=== PATIENT | female | born 1965 | race Caucasian/White ===

== ENCOUNTER 2022-04-08 13:16 | Observation (INO) | payer MEDICARE, SELFPAY ==
[2022-04-08] VITALS (16 sets, daily range): BP systolic 90–135; BP diastolic 44–79; PULSE 67–130; RESP 14–23; TEMP 36.4–36.8; O2SAT 96–100; BMI 29.1; BMI 39.3
--- NOTE | 2022-04-08 13:26 | HMH.EDGENADL ---
Discharge Plan Disposition Patient Disposition: Admitted As Inpatient Prescriptions Prescriptions: No Action furosemide 40 mg Tablet 40 mg PO BID metolazone 2.5 mg Tablet 2.5 mg PO DAILY carvedilol 12.5 mg Tablet 12.5 mg PO BID Rx Instructions: must administer with a meal/food famotidine 10 mg Tablet 10 mg PO DAILY ascorbic acid (vitamin C) 500 mg Tablet 500 mg PO DAILY albuterol sulfate 90 mcg/actuation Hfa Aerosol Inhaler 2 puff INHALATION QID PRN (Reason: COPD) topiramate 100 mg Tablet 50 mg PO DAILY fluticasone propionate [Flonase Allergy Relief] 50 mcg/actuation Tracy,Suspension 2 spray INTRANASAL DAILY loratadine 10 mg Tablet 10 mg PO DAILY buspirone 15 mg Tablet 15 mg PO TID duloxetine 60 mg Capsule,Delayed Release(Dr/Ec) 60 mg PO DAILY linaclotide 290 mcg Capsule 290 mcg PO DAILY [id number]-[id number]-[id number] 200-62.5-25 mcg Blister With Device 1 inh INHALATION DAILY Clinical Impressions Clinical Impression: Syncope, Acute hypokalemia, Hypomagnesemia Discharge ED Provider: Terell Watson General Adult HPI General Chief complaint: Fall Stated complaint: Dizzy and fell Time Seen by Provider: 04/08/22 13:26 History of Present Illness HPI narrative: Patient is a 56-year-old female with a history of heart failure and COPD with recent admission to [facility] for COPD exacerbation who presents today with a syncopal episode. She states that she was in the kitchen with no preceding prodrome this was not positional in nature and all of a sudden she felt lightheaded and lost consciousness. She states that she had no chest pain no dyspnea no headache no other painful condition. She states that she was on a medical lab technologist recently in the hospital and was not told of any significant arrhythmia. She denies having an AICD. She denies any other current symptoms. Including nausea vomiting diarrhea or volume losses. She denies any significant medication changes recently. Related Data Home Medications Medication Instructions Recorded Confirmed albuterol sulfate 90 mcg/actuation 2 puff inhalation QID PRN COPD 04/08/22 04/08/22 aerosol inhaler ascorbic acid (vitamin C) 500 mg 500 mg PO DAILY Supplement 04/08/22 04/08/22 tablet buspirone 15 mg tablet 15 mg PO TID Depression with 04/08/22 04/08/22 Anxiety carvedilol 12.5 mg tablet 12.5 mg PO BID Heart failure 04/08/22 04/08/22 duloxetine 60 mg capsule,delayed 60 mg PO DAILY Depression with 04/08/22 04/08/22 release Anxiety famotidine 10 mg tablet 10 mg PO DAILY GERD 04/08/22 04/08/22 fluticasone fur. 200 mcg-umeclid 1 inh inhalation DAILY COPD 04/08/22 04/08/22 62.5 mcg-vilant 25 mcg inhalat.powder fluticasone propionate 50 2 spray intranasal DAILY 04/08/22 04/08/22 mcg/actuation nasal Congestion/chest congesti spray,suspension (Flonase Allergy Relief) furosemide 40 mg tablet 40 mg PO BID Edema 04/08/22 04/08/22 linaclotide 290 mcg capsule 290 mcg PO DAILY IBS 04/08/22 04/08/22 loratadine 10 mg tablet 10 mg PO DAILY Allergies 04/08/22 04/08/22 metolazone 2.5 mg tablet 2.5 mg PO DAILY Edema 04/08/22 04/08/22 topiramate 100 mg tablet 50 mg PO DAILY Migraine 04/08/22 04/08/22 Allergies Allergy/AdvReac Type Severity Reaction Status Date / Time Sulfa (Sulfonamide Allergy Intermediate Rash Verified 04/08/22 13:43 Antibiotics) tiotropium Allergy Intermediate Rash Verified 04/08/22 13:43 [From Spiriva with HandiHaler] ciprofloxacin AdvReac Severe Swelling Verified 04/08/22 13:43 of Lip/Tongue/Throat [facility] Disclaimer: The information contained in this section may have been updated after the patient was seen, as this information can be updated by other users. Medical History (Updated 04/08/22 @ 15:14 by Terell Watson MD) Asthma CAD (coronary artery disease) CHF (congestive heart failure) [place]
--- NOTE | 2022-04-08 13:30 | PC.NURSE ---
ZITA ESCOBAR at for pt carrollal
[2022-04-08 13:53] LABS: Alanine Aminotransferase 25 U/L (12-78); Albumin Level 3.8 g/dl (3.5-5.0); Albumin/Globulin Ratio 1.1 (1.1-1.8); Alkaline Phosphatase 90 U/L (38-126); Aspartate Amino Transferase 31 U/L (14-36); Bilirubin,Total 0.5 mg/dl (0.2-1.3); Blood Urea Nitrogen 28 mg/dl (7-17); Calcium 8.6 mg/dl (8.4-10.2); Chloride 86 mmol/L (98-107); Creatinine Clearance Estimated 80 mL/min (50-200); Estimated Glomerular Filt Rate 58 ml/min (>60); GFR (African American) 70 ML/MIN (>60); Globulin 3.6 g/dL (1.3-3.2); Glucose 127 mg/dl (74-100); Magnesium 1.9 mg/dl (1.6-2.3); Phosphorous 4.5 mg/dl (2.5-4.5); Sodium 133 mmol/L (136-145); Total Protein,Serum 7.4 g/dl (6.3-8.2)
--- NOTE | 2022-04-08 14:00 | ECG_ITS ---
APPROVED REPORT Exam: Resting ECG HR:89 bpm ECG Measurements Heart Rate 89 AXES KS 156 P 80 QRSd 95 QRS 82 QT 398 T 86 QTc 445 Conclusion SINUS RHYTHM NONSPECIFIC T-WAVE ABNORMALITY BORDERLINE ECG UNCONFIRMED REPORT Electronically signed by : Brannon Elder MD 04/08/2022 20:53:51
[2022-04-08 14:01] LABS: Anion Gap 7.7 mEq/L (5-15); Carbon Dioxide 42 mmol/L (22.0-30.0)
[2022-04-08 14:02] LABS: Potassium 2.7 mmoL/L (3.5-5.1)
[2022-04-08 14:05] LABS: Troponin I < 0.01 ng/ml (0.00-0.034)
[2022-04-08 14:39] LABS: Basophils # 0.1 K/mm3 (0-0.2); Eosinophils # 0.2 K/mm3 (0.0-0.4); Eosinophils % 1.4 % (0.1-12.0); Hematocrit 42.7 % (37.0-47.0); Hemoglobin 13.7 g/dL (12.2-16.2); Lymphocytes # 2.7 K/mm3 (0.7-4.5); Mean Corpuscular HGB Conc 32.2 g/dL (31.8-35.4); Mean Corpuscular Volume 74.5 fl (81-99); Mean Platelet Volume 8.6 fl (7.4-10.4); Monocytes # 0.9 K/mm3 (0.1-1.0); Monocytes % 7.3 % (1.7-9.3); Neutrophils # 7.9 K/mm3 (1.8-7.8); Neutrophils % 67.3 % (37.0-80.0); Platelet Count 329 K/mm3 (142-424); Red Blood Count 5.73 M/mm3 (4.20-5.40); Red Cell Distribution Width 16.5 % (11.5-17.5); White Blood Count 11.7 K/mm3 (4.8-10.8)
--- NOTE | 2022-04-08 15:07 | PC.NURSE ---
ZITA ESCOBAR at for update on POC
--- NOTE | 2022-04-08 15:17 | PC.NURSE ---
Called for medical records from [facility], awaiting to receive info.
--- NOTE | 2022-04-08 15:40 | PC.NURSE ---
Rounded on patient. Patient needed a blanket; call light within reach of patient
--- NOTE | 2022-04-08 15:50 | PC.NURSE ---
Rounded on patient, patient was covid/flu swabbed and it was sent to lab. Call light within reach. She is sitting up on ED stretcher watching her phone with no other needs at this time
[2022-04-08 15:51] LABS: Coronavirus 19, PCR Not Detected (NotDetected); Influenza A, PCR Not Detected (NotDetected); Influenza B, PCR Not Detected (NotDetected)
--- NOTE | 2022-04-08 16:38 | EXP.HP ---
History of Present Illness *Admission Date: 04/08/22 *Reason for visit:: Syncope *History of present illness: Ms. Good is a 56-year-old female with a past medical history of COPD, home oxygen dependent at 2L, CHF, HTN. She presented to [facility] due to syncopal event that occurred prior to arrival. In the ER she was noted to be neurologically intact on exam, but found to have electrolyte abnormalities. Concern per review of notes is for possible arrythmia. Recommendations were to monitor on telemetry. The patient was admitted with initial impression: Syncope, Hypokalemia and Hyponatremia. The patient will be monitored on telemetry. She was given Electrolyte replacement. [facility] Disclaimer: The information contained in this section may have been updated after the patient was seen, as this information can be updated by other users. 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 Migraine Mycobacterium avium complex Myocardial infarct EDU (obstructive sleep apnea) Osteoporosis Seasonal allergies Surgical History Gastric bypass status for obesity H/O oophorectomy H/O: hysterectomy History of bronchoscopy History of cardiac cath History of endoscopy History of lobectomy of lung Status post osteotomy Social History Smoking Status: Current every day smoker tobacco type: cigarettes packs per day: 1 alcohol intake: never current occupational status: disabled and other Travel in the last 8 weeks: None household members: spouse housing: house lives independently: Yes marital status: education level: high school Review of Systems Review of Systems Review of systems:: pertinent systems reviewed and negative unless documented below Constitutional Constitutional: Reports system reviewed and no additional complaints, except as documented Eyes Eyes: Reports system reviewed and no additional complaints, except as documented ENT Ears, Nose, Mouth, and Throat: Reports system reviewed and no additional complaints, except as documented and Reports dizziness *Cardiovascular Cardiovascular: Reports system reviewed and no additional complaints, except as documented *Respiratory Respiratory: Reports system reviewed and no additional complaints, except as documented *Gastrointestinal Gastrointestinal: Reports system reviewed and no additional complaints, except as documented *Genitourinary Genitourinary: Reports system reviewed and no additional complaints, except as documented *Musculoskeletal Musculoskeletal: Reports system reviewed and no additional complaints, except as documented Integumentary/Breasts Skin/Breast: Reports system reviewed and no additional complaints, except as documented *Neurologic Neurologic: Reports dizziness and Reports lack of coordination Psychiatric Psychiatric: Reports system reviewed and no additional complaints, except as documented Endocrine Endocrine: Reports system reviewed and no additional complaints, except as documented Hematologic/Lymphatic Hematologic/Lymphatic: Reports system reviewed and no additional complaints, except as documented Allergic/Immunologic Allergic/Immunologic: Reports system reviewed and no additional complaints, except as documented Meds Home Medications and Allergies Home Medications
--- NOTE | 2022-04-08 16:46 | PC.NURSE ---
Patient aware that she will be admitted. Report given to VIANCA Mcdowell. [facility] discharge summary sent to floor with patient chart.
--- NOTE | 2022-04-08 16:58 | PC.NURSE ---
arrived to floor by wheelchair from ED
[2022-04-08 17:28] LABS: Troponin I < 0.01 ng/ml (0.00-0.034)
--- NOTE | 2022-04-08 17:41 | PC.NURSE ---
new admit this shift. 2lnc in place for o2 support. pt wears 2l at home. she has not c/o anything since arriving to floor. denies n/v.
[2022-04-08 20:24] LABS: Troponin I < 0.01 ng/ml (0.00-0.034)
[2022-04-08 20:27] LABS: Chloride 94 mmol/L (98-107); Potassium 3.1 mmoL/L (3.5-5.1); Sodium 136 mmol/L (136-145)
[2022-04-08 20:30] LABS: Alanine Aminotransferase 19 U/L (12-78); Albumin Level 3.1 g/dl (3.5-5.0); Albumin/Globulin Ratio 1.1 (1.1-1.8); Alkaline Phosphatase 79 U/L (38-126); Anion Gap 5.1 mEq/L (5-15); Aspartate Amino Transferase 24 U/L (14-36); Bilirubin,Total 0.4 mg/dl (0.2-1.3); Blood Urea Nitrogen 30 mg/dl (7-17); Carbon Dioxide 40 mmol/L (22.0-30.0); Creatinine Clearance Estimated 92 mL/min (50-200); Estimated Glomerular Filt Rate 52 ml/min (>60); GFR (African American) 62 ML/MIN (>60); Globulin 2.9 g/dL (1.3-3.2); Glucose 108 mg/dl (74-100)
[2022-04-08 20:31] LABS: Magnesium 1.9 mg/dl (1.6-2.3)
[2022-04-09] VITALS (7 sets, daily range): BP systolic 97–126; BP diastolic 48–80; PULSE 80–96; RESP 20–22; TEMP 37–37.2; O2SAT 88–99; BMI 39.6
--- NOTE | 2022-04-09 05:00 | PC.NURSE ---
Pt has been NSR and tachy at times t/o night. Pt has c/o feeling light headed 2x t/o night. 1st time pt bp was 105/48. Other vitals WNL and no signs of change on tele. Monitored pt closely and rechecked bp 1 hour later 109/60. Pt stated she felt better. Around 0500 Pt c/o of light headed feeling again. Pt had no oxygen on and o2 sat was 88%. After applying nc, pt o2 came up to 96%. Pt stated she felt better. No other c/o t/o night. Call light within reach.
[2022-04-09 05:01] LABS: Troponin I < 0.01 ng/ml (0.00-0.034)
--- NOTE | 2022-04-09 06:08 | PC.NURSE ---
AT 0600 RECEIVED REPORT FROM Pato MORELOS RN.
--- NOTE | 2022-04-09 07:00 | CT_ITS ---
PROCEDURE INFORMATION: Exam: CT Head Without Contrast Exam date and time: 04/09/2022 10:14 AM Age: 56 years old Clinical indication: Syncope and collapse TECHNIQUE: Imaging protocol: Computed tomography of the head without contrast. Radiation optimization: All CT scans at this facility use at least one of these dose optimization techniques: automated exposure control; mA and/or kV adjustment per patient size (includes targeted exams where dose is matched to clinical indication); or iterative reconstruction. Other protocol: This patient has received 0 known CTs and 0 known cardiac nuclear medicine studies in the 12 months prior to the current study. COMPARISON: No relevant prior studies available. FINDINGS: Brain: No evolving territorial infarct or intracranial hemorrhage seen. There is a focal, chronic appearing right caudate lacunar infarct. Cerebral ventricles: No ventriculomegaly. Paranasal sinuses: Visualized sinuses are unremarkable. No fluid levels. Mastoid air cells: Visualized mastoid air cells are well aerated. Bones/joints: Unremarkable. No acute fracture. Soft tissues: Unremarkable. Vasculature: Calcified atherosclerosis of the cisternal vertebral arteries and carotid siphons. IMPRESSION: No acute intracranial abnormality seen.
[2022-04-09 08:39] LABS: Basophils # 0.1 K/mm3 (0-0.2); Basophils % 0.9 % (0.1-2.0); Eosinophils # 0.2 K/mm3 (0.0-0.4); Eosinophils % 2.5 % (0.1-12.0); Hematocrit 39.2 % (37.0-47.0); Lymphocytes # 3.6 K/mm3 (0.7-4.5); Mean Corpuscular HGB Conc 31.4 g/dL (31.8-35.4); Mean Corpuscular Hemoglobin 24.1 pg (27.0-31.2); Mean Corpuscular Volume 76.9 fl (81-99); Mean Platelet Volume 8.6 fl (7.4-10.4); Monocytes # 0.6 K/mm3 (0.1-1.0); Monocytes % 6.5 % (1.7-9.3); Neutrophils # 4.5 K/mm3 (1.8-7.8); Platelet Count 291 K/mm3 (142-424); Red Cell Distribution Width 16.7 % (11.5-17.5); White Blood Count 8.9 K/mm3 (4.8-10.8)
[2022-04-09 08:40] LABS: Chloride 94 mmol/L (98-107); Hemoglobin 12.3 g/dL (12.2-16.2); Sodium 136 mmol/L (136-145)
[2022-04-09 08:42] LABS: Alanine Aminotransferase 21 U/L (12-78); Aspartate Amino Transferase 26 U/L (14-36); Blood Urea Nitrogen 26 mg/dl (7-17); Creatinine Clearance Estimated 102 mL/min (50-200); Estimated Glomerular Filt Rate 58 ml/min (>60); GFR (African American) 70 ML/MIN (>60); Potassium 3.2 mmoL/L (3.5-5.1)
[2022-04-09 08:43] LABS: Albumin Level 3.5 g/dl (3.5-5.0); Albumin/Globulin Ratio 1.1 (1.1-1.8); Alkaline Phosphatase 83 U/L (38-126); Anion Gap 6.2 mEq/L (5-15); Bilirubin,Total 0.5 mg/dl (0.2-1.3); Calcium 8.4 mg/dl (8.4-10.2); Carbon Dioxide 39 mmol/L (22.0-30.0); Globulin 3.3 g/dL (1.3-3.2); Glucose 124 mg/dl (74-100); Magnesium 2.1 mg/dl (1.6-2.3); Total Protein,Serum 6.8 g/dl (6.3-8.2)
--- NOTE | 2022-04-09 08:54 | PC.NURSE ---
tech note; orthostatic blood pressure noted for 0800 vital signs.
--- NOTE | 2022-04-09 09:09 | EXP.DC.SUM ---
General Admission date:: 04/08/22 Discharge date: 04/09/22 HPI HPI HPI: Ms. Good is a 56-year-old female with a past medical history of COPD, home oxygen dependent at , CHF, HTN. She presented to [facility] due to syncopal event that occurred prior to arrival. In the ER she was noted to be neurologically intact on exam, but found to have electrolyte abnormalities. Concern per review of notes is for possible arrythmia. Recommendations were to monitor on telemetry. The patient was admitted with initial impression: Syncope, Hypokalemia and Hypomagnesia. The patient will be monitored on telemetry. She was given Electrolyte replacement. Hospital Course Hospital Course Hospital Course: The patient was admitted to the medical floor with telemetry monitoring. She received IV fluid resuscitation with routine blood pressure evaluations. Her electrolytes were routinely monitored and replaced. The patient identified improvement and identified no further syncope. Her telemetry identified no abnormalities. She inquired about discharge home. She reports that she has an appointment with her PCP Dr. Johns in [place] on Monday. She plans to follow-up with her production control analyst in [place] to discuss her diuretic dosing and need for routine potassium supplementation. Her was at bedside on day of discharge and reports that he is identified an improvement in his . They are anxious to get home and follow-up with their regular outpatient care team. A discharge potassium identifies improved correction. She will be discharged with a short course of potassium supplementation. We have recommended compliance with her home BiPAP therapy and she plans to pursue our recommendations. She normally sees a stock lifter in [facility] (Dr. Cyndee Metz). I have recommended she contact their office to identify her BiPAP machine needs. Exam Data for Last 24 hours Vital signs and Labs for Last 24 Hours: Temp Pulse Resp BP Pulse Ox 98.6 F 84 20 106/52 L 99 04/09/22 08:00 04/09/22 08:00 04/09/22 08:00 04/09/22 08:00 04/09/22 08:00 Laboratory Results - last 24 hr 04/08/22 13:30: WBC 11.7 H, RBC 5.73 H, Hgb 13.7, Hct 42.7, MCV 74.5 L, MCH 24.0 L, MCHC 32.2, RDW 16.5, Plt Count 329, MPV 8.6, Neut % (Auto) 67.3, Lymph % (Auto) 23.0, Cook % (Auto) 7.3, Eos % (Auto) 1.4, Baso % (Auto) 1.0, Neut # (Auto) 7.9 H, Lymph # (Auto) 2.7, Cook # (Auto) 0.9, Eos # (Auto) 0.2, Baso # (Auto) 0.1 04/08/22 13:30: Sodium 133 L, Potassium 2.7 L*, Chloride 86 L, Carbon Dioxide 42 H*, Anion Gap 7.7, BUN 28 H, Creatinine 1.00, Estimated Creat Clear 80, Estimated GFR 58 L, Est GFR ( Amer) 70, Glucose 127 H, Calcium 8.6, Phosphorus 4.5, Magnesium 1.9, Total Bilirubin 0.5, AST 31, ALT 25, Alkaline Phosphatase 90, Troponin I < 0.01, Total Protein 7.4, Albumin 3.8, Globulin 3.6 H, Albumin/Globulin Ratio 1.1 04/08/22 15:48: SARS-CoV-2 (PCR) Not detected, Influenza A Untype (PCR) Not detected, Influenza Type B (PCR) Not detected 04/08/22 16:40: Troponin I < 0.01 04/08/22 19:48: Troponin I < 0.01 04/08/22 19:48: Sodium 136, Potassium 3.1 L, Chloride 94 L, Carbon Dioxide 40 H, Anion Gap 5.1, BUN 30 H, Creatinine 1.10 H, Estimated Creat Clear 92, Estimated GFR 52 L, Est GFR ( Amer) 62, Glucose 108 H, Calcium 8.0 L, Total Bilirubin 0.4, AST 24, ALT 19, Alkaline Phosphatase 79, Total Protein 6.0 L, Albumin 3.1 L D, Globulin 2.9, Albumin/Globulin Ratio 1.1 04/08/22 19:48: Magnesium 1.9 04/09/22 04:25: Troponin I < 0.01 04/09/22 08:09: WBC 8.9, RBC 5.10, Hgb 12.3 D, Hct 39.2, MCV 76.9 L, MCH 24.1 L, MCHC 31.4 L, RDW 16.7, Plt Count 291, MPV 8.6, Neut % (Auto) 50.0, Lymph % (Auto) 40.0, Cook % (Auto) 6.5, Eos % (Auto) 2.5, Baso % (Auto) 0.9, Neut # (Auto) 4.5, Lymph # (Auto) 3.6, Cook # (Auto) 0.6, Eos # (Auto) 0.2, Baso # (Auto) 0.1 04/09/22 08:09: Sodium 136, Potassium 3.2 L, Chloride 94 L, Carbon Dioxide 39 H, Anion Gap 6.2, BUN 26 H, Creatinin
[2022-04-09 09:26] LABS: Barbiturates Screen,Urine Negative ng/ml (<200)
[2022-04-09 09:27] LABS: Amphetamine/Metha Screen,Urine Negative ng/ml (<1000); Benzodiazepines Screen,Urine Negative ng/ml (<200)
[2022-04-09 09:28] LABS: Cannabinoid Screen,Urine Negative ng/ml (<50)
[2022-04-09 09:29] LABS: Cocaine Screen,Urine Negative ng/ml (<300); Methadone Screen,Urine Negative ng/ml (<300)
[2022-04-09 09:30] LABS: Opiate Screen,Urine Negative ng/ml (<300)
[2022-04-09 09:31] LABS: Phencyclidine Screen,Urine Negative ng/ml (<25)
[2022-04-09 09:54] LABS: Potassium 3.3 mmoL/L (3.5-5.1)
[2022-04-09 10:00] LABS: Troponin I < 0.01 ng/ml (0.00-0.034)
--- NOTE | 2022-04-09 10:32 | HMH.PHAINT1 ---
Pharmacy Intervention Comments: DISCHARGE MEDICATION COUNSELING PROVIDED. DISCUSSED ADDITION OF POTASSIUM SUPPLEMENT (TAKE DAILY, WITH FOOD, MAY CAUSE N/V/D, SIGNS OF HIGH POTASSIUM LEVEL. PATIENT VERBALIZED NO QUESTIONS AT THIS TIME.
--- NOTE | 2022-04-09 10:51 | PC.NURSE ---
pt is being discahrged from the facility with . She voiced undestanding of all discahrge education and follow up appts. IV removed. prescription sent to [facility]. Pt has a follow up appt on Monday with her PCP.
--- NOTE | 2022-04-11 13:48 | CARE MANAGER ---
Called and spoke with patient to discuss post discharge status. Patient stated that she is feeling ok, just tired. She has picked up and started her potassium that was prescribed at discharge. She has been to see the kick press setter this orning and plans to see her PCP this afternoon.
== END 2022-04-09 11:25 | disposition home or self-care (01) ==
LOC: ER 15:14 → 2ND 16:39
PROVIDERS: Family Medicine; Nurse Practitioner Family; Admitting Provider Internal Medicine Adolescent Medicine; Emergency Provider Student in an Organized Health Care Education/Training Program; PCP Internal Medicine Critical Care Medicine; Visit Provider Internal Medicine Adolescent Medicine
DX: E87.6 Hypokalemia (principal); J44.9 Chronic obstructive pulmonary disease, unspecified; I11.0 Hypertensive heart disease with heart failure; Z79.899 Other long term (current) drug therapy; Z99.81 Dependence on supplemental oxygen; I50.9 Heart failure, unspecified; I25.10 Atherosclerotic heart disease of native coronary artery without angina pectoris; I42.9 Cardiomyopathy, unspecified; F17.210 Nicotine dependence, cigarettes, uncomplicated; Z20.822 Contact with and (suspected) exposure to COVID-19
CPT/HCPCS: G0378; 36415; 70450; 80053; 80305; 83735; 84100; 84132; 84484; 85025; 93005; 94640; 99285; C9803; J2405; U0003; U0005

== ENCOUNTER → 2022-05-04 14:05 | Outpatient (CLI) | payer MEDICARE, SELFPAY ==
--- NOTE | 2022-05-04 14:47 | CT_ITS ---
FINAL REPORT TECHNIQUE: Axial imaging of the chest is obtained after the administration of contrast. 3-D MIP reformatted images were also obtained and reviewed per PE protocol. CLINICAL HISTORY: chest pain/dyspnea/edema. FINDINGS: The pulmonary arteries are well filled. There is no evidence of pulmonary embolus. There is no aortic dissection or intimal flap. There is no mediastinal, hilar, or axillary lymphadenopathy. There is evidence of prior granulomatous disease. There is a 5 mm pulmonary nodule in the left lower lobe. There are areas of linear scarring in the left upper lobe. There are patchy ground-glass opacities present, infectious or inflammatory process is not excluded. There is no pleural or pericardial effusion. Limited evaluation of the upper abdomen is without acute abnormality. There is no acute osseous abnormality. IMPRESSION: 1. No evidence of pulmonary embolism or aortic dissection. 2. Patchy ground-glass opacities could be infectious or inflammatory. Reviewed, Interpreted and Dictated by Thao Pineda MD Transcribed by Carmela Campa Authenticated and [facility]
[2022-05-04 15:08] LABS: Basophils # 0.1 K/mm3 (0-0.2); Basophils % 1.2 % (0.1-2.0); Eosinophils # 0.2 K/mm3 (0.0-0.4); Eosinophils % 3.3 % (0.1-12.0); Hematocrit 40.1 % (37.0-47.0); Hemoglobin 12.7 g/dL (12.2-16.2); Lymphocytes # 2.8 K/mm3 (0.7-4.5); Mean Corpuscular HGB Conc 31.6 g/dL (31.8-35.4); Mean Corpuscular Hemoglobin 24.3 pg (27.0-31.2); Mean Corpuscular Volume 76.8 fl (81-99); Mean Platelet Volume 8.8 fl (7.4-10.4); Monocytes # 0.4 K/mm3 (0.1-1.0); Monocytes % 5.4 % (1.7-9.3); Neutrophils % 46.1 % (37.0-80.0); Platelet Count 299 K/mm3 (142-424); Red Blood Count 5.22 M/mm3 (4.20-5.40); Red Cell Distribution Width 16.6 % (11.5-17.5); White Blood Count 6.4 K/mm3 (4.8-10.8)
[2022-05-04 15:28] LABS: Free T4 (Free Thyroxine) 1.16 ng/dl (0.78-2.19)
[2022-05-04 15:38] LABS: Alanine Aminotransferase 16 U/L (12-78); Albumin Level 3.5 g/dl (3.5-5.0); Alkaline Phosphatase 84 U/L (38-126); Anion Gap 2.8 mEq/L (5-15); Aspartate Amino Transferase 25 U/L (14-36); Bilirubin,Direct 0.2 mg/dl (0.0-0.4); Bilirubin,Indirect 0.3 mg/dL (0.0-0.9); Bilirubin,Total 0.5 mg/dl (0.2-1.3); Bilirubin,Unconjugated 0.2 mg/dL (0.0-1.1); Blood Urea Nitrogen 18 mg/dl (7-17); Calcium 8.6 mg/dl (8.4-10.2); Carbon Dioxide 38 mmol/L (22.0-30.0); Chloride 100 mmol/L (98-107); Chol/HDL Ratio 4.1 (1-3.5); Cholesterol 227 mg/dl (140-200); Direct LDL Cholesterol 137.22 mg/dL (100-129); Estimated Glomerular Filt Rate 87 ml/min (>60); GFR (African American) 105 ML/MIN (>60); Glucose 107 mg/dl (74-100); HDL Cholesterol 55 mg/dl (40-60); Magnesium 2.1 mg/dl (1.6-2.3); Potassium 3.8 mmoL/L (3.5-5.1); Sodium 137 mmol/L (136-145); Thyroid Stimulating Hormone 2.46 uIU/mL (0.465-4.68); Total Protein,Serum 6.5 g/dl (6.3-8.2); Triglycerides 172 mg/dl (30-150); VLDL Cholesterol 34 mg/dL (0-40)
== END ==
LOC: LAB 14:07
PROVIDERS: PCP Internal Medicine; Visit Provider Nurse Practitioner
DX: I10 Essential (primary) hypertension (principal); I50.9 Heart failure, unspecified; R06.00 Dyspnea, unspecified; R07.9 Chest pain, unspecified; R42 Dizziness and giddiness; R53.83 Other fatigue; R55 Syncope and collapse; R60.0 Localized edema
CPT/HCPCS: 36415; 71275; 80048; 80061; 80076; 83735; 84439; 84443; 85025; 93225; Q9967

== ENCOUNTER → 2022-05-19 06:12 | Outpatient (CLI) | payer MEDICARE, SELFPAY ==
--- NOTE | 2022-05-19 06:13 | CA_ITS ---
APPROVED REPORT EXAM: Comprehensive 2D, Doppler, and color-flow Echocardiogram Reactor Fueling Supervisor: Frances Hopkins RVT Ht: 5 ft 3 in Wt: 225lbs BSA: 2.03 BP: 161/91 mmHg Indications: SYNCOPE,SOA,CHF,EDEMA,SMOKER,CAD,COPD 2D Dimensions LVOT 2.01 cm (M/F) 1.5-2.5 LA Volume 27.30 mL LA Volume Index 13.45 mL/m2 (M/F) 16-34 M-Mode Dimensions RVDd 2.77 cm (0.9-2.6) LA Diam 3.58 cm (1.9-4.0) LVDd 4.30 cm (3.5-5.7) Ao Diam 2.57 cm (2.0-3.7) LVDs 2.89 cm (3.5-5.7) IVSd 1.37 cm (0.6-1.1) PWd 0.46 cm (0.6-1.1) EF (Teich) 61.60% FS 32.80% EDV (Teich) 83.10 mL TAPSE 2.38 (<1.7) ESV (Teich) 31.90 mL LV Diastology E Decel Time 223.00 (160-240 msec) E/A Ratio 1.0 MED E' 7.30 (< 7 cm/sec) E'/MED E' Ratio 13.71 (>14) LAT E' 7.50 (<10 cm/sec) E/LAT E' Ratio 13.35 (>14) Aortic Valve AO Peak GR. 6.60 mmHg Mitral Valve MV E Max Bharat. 100.00 (40-130 cm/s) MV A Velocity 104.00 (40-130 cm/s) E/A Ratio 0.97 MV Decel. Time 223.00 (160-240 ms) MV PHT 65.00 ms Pulmonary Valve PV Peak Velocity 69.00 (50-150 cm/s) Tricuspid Valve TR P. Velocity 267.00 cm/s RAP Estimate 10.00 mmHg RVSP 38.40 mmHg Left Ventricle Left atrium is mildly enlarged, left ventricle is normal size mild concentric left ventricular hypertrophy, estimated ejection fraction 55% with no regional wall motion abnormality, grade 1 diastolic dysfunction seen without tissue Doppler evidence of reduced left atrial pressure. Right Ventricle Right atrium and right ventricle are mildly enlarged with normal contractility. Aortic Valve Aortic valve is minimally thickened and fibrosed there is no aortic stenosis aortic insufficiency. Mitral Valve Mitral valve has mitral calcification, leaflets are minimally thickened, there is no mitral stenosis, there is mild mitral regurgitation. Tricuspid Valve Tricuspid grossly normal, there is mild tricuspid regurgitation, calculated right ventricular systolic pressure is 38 mmHg. Pulmonic Valve Pulmonic valve is poorly visualized. Great Vessels Aortic root is normal size. Inferior vena cava is normal size with normal inspiratory collapse. Pericardium No significant pericardial effusion noted. Conclusion 1. Mild biatrial normal, normal left ventricular size, mild concentric left ventricular hypertrophy, estimated ejection fraction 55% with no regional wall motion abnormality, grade 1 diastolic dysfunction seen without tissue Doppler evidence of late left atrial pressure. 2. Mildly enlarged right ventricle with normal contractility. 3. Mild mitral and tricuspid regurgitation, calculated right ventricular systolic pressure 38 mmHg. 4. No significant pericardial effusion noted 5. Inferior vena cava normal size with normal inspiratory collapse. Electronically signed by : Serg Davis MD 05/20/2022 14:56:59
--- NOTE | 2022-05-19 06:13 | NM_ITS ---
APPROVED REPORT Exam: Nuclear Stress Test Indication: chest pain..soa..fatigue..syncope Patient Location: Outpatient Stress Tech: Rosario Rios HI Tech:TOM Ch RT(R)(N) Ht: 5 ft 3 in Wt: 225 lbs Bra Size: 46d HR: 81 bpm BP: 142/78 mmHg BSA: 2.03 m2 TID: 1.04 BMI: 39.8 History: chest pain..soa..fatigue..syncope Procedure: Patient received 0.4 mg of intravenous Lexiscan, resting heart rate 81 bpm, resting blood pressure 142/78 mmHg, with Lexiscan maximum heart rate achieved was 106 bpm which is Less than 85 % of the maximum predicted heart rate and blood pressure was 142/78 mmHg. With Lexiscan, patient denied any complaint of chest pain. Electrocardiogram Resting electrocardiogram shows sinus rhythm, with Lexiscan there is a 1.[address] segment depression noted from the baseline EKG. The EKG portion of the Lexiscan is nondiagnostic. Cardiac Stress and Resting SPECT Images: Cardiac Stress and Resting SPECT images were obtained using technetium 99m Myoview 31.9 mCi stress and 10.23 mCi at rest. Gated SPECT analysis of segmental wall motion and calculation of the ejection fraction also done. Prone images were also obtained. Cardiac prone images show uniform myocardial activity without segmental perfusion abnormality, computer derived ejection fraction is 59% with no regional wall motion abnormality, right ventricle is normal size and contractility. Conclusion: 1. The EKG portion of the Lexiscan is nondiagnostic. 2. No scintigraphic evidence of reversible ischemia seen, computer derived ejection fraction is 59% with no regional wall motion abnormality, right ventricle is normal size and contractility. 3. Normal Lexiscan Myoview study. Electronically signed by : Serg Davis MD 05/20/2022 11:03:10
--- NOTE | 2022-05-19 06:13 | CA_ITS ---
APPROVED REPORT Exam: Pharmacologic Technologist: Rosario Colin, Ht: 5 ft 3 in Wt: 225 lbs BSA: 2.03 m2 HR: 75 bpm BP: 142/78 mmHg Medical History Medications: Vitamin C,,,,, Pantoprazole,,,,, Carvedilol,,,,, Flonase,,,,, Buspirone,,,,, TopIRAMATE,,,,, Albuterol,,,,, DulOXETINE,,,,, Metolazone,,,,, Potassium,,,,, LiNACLOTIDE,,,,, Stress Test Details Test: LEXISCAN Reason for pharmacologic stress test: physical limitation. HR Resting HR: 81 bpm Max Heart Rate (APMHR): 164.933426 bpm Max HR Achieved: 106 bpm Target HR (85% APMHR): 139.678777 bpm % of APMHR: 64.63 Recovery HR: 87 bpm BP Resting BP: 142/78 mmHg Max BP: 142/78 mmHg Recovery BP: 142.0/73.0 mmHg ECG Resting ECG: NSR, rightward axis, ST abns in the inferior leads Clinical Exercise duration: 04:00 min Highest Stage Achieved: Exercise capacity: 1.0 METs Stress ECG Conclusion Symptoms: SOA, chest tightness, mild stomach discomfort. Arrhythmias/Ectopy: None. ST-T Changes: No significant changes. Conclusion: Non-diagnostic Lexiscan stress. Myoview images reported separately. Test Summary REST . . . . . . . Resting REST 05:56 . . 81 . 142/ 78 . . Stage 1 01:00 . . 105 . . . . Stage 2 01:00 . . 101 . . . . Stage 3 01:00 . . 97 . 128/ 69 . . Stage 4 01:00 . . 90 . 131/ 71 . Stop exercise at 04:00 RECOVERY 01:00 . . 96 . 125/ 66 . . RECOVERY 02:00 . . 88 . 125/ 66 . . RECOVERY 03:00 . . 87 . 137/ 73 . . RECOVERY 03:19 . . 85 . 142/ 73 . . Electronically signed by : Serg Davis MD 05/20/2022 09:53:43
== END ==
LOC: RAD 06:12
PROVIDERS: PCP Internal Medicine; Visit Provider Physician Assistant
DX: I45.2 Bifascicular block (principal); R06.00 Dyspnea, unspecified; R42 Dizziness and giddiness
CPT/HCPCS: 78452; 93017; 93306; A9502; J2785

== ENCOUNTER → 2022-05-28 10:51 | Outpatient (CLI) | payer MEDICARE, SELFPAY ==
[2022-05-28 11:50] LABS: Anion Gap 5.5 mEq/L (5-15); Blood Urea Nitrogen 13 mg/dl (7-17); Calcium 7.9 mg/dl (8.4-10.2); Carbon Dioxide 35 mmol/L (22.0-30.0); Chloride 99 mmol/L (98-107); Estimated Glomerular Filt Rate 103 ml/min (>60); GFR (African American) 125 ML/MIN (>60); Glucose 115 mg/dl (74-100); Potassium 3.5 mmoL/L (3.5-5.1); Sodium 136 mmol/L (136-145)
== END ==
PROVIDERS: PCP Internal Medicine; Visit Provider Physician Assistant
DX: I10 Essential (primary) hypertension (principal); I50.9 Heart failure, unspecified; J44.9 Chronic obstructive pulmonary disease, unspecified; R06.00 Dyspnea, unspecified; R07.9 Chest pain, unspecified; R42 Dizziness and giddiness; R53.83 Other fatigue; R60.0 Localized edema
CPT/HCPCS: 36415; 80048

== ENCOUNTER 2024-11-13 12:01 | Outpatient (CLI) | payer MEDICARE, SELFPAY ==
--- OUTSIDE RECORDS SUMMARY | 2024-09-30 12:52 | XMS_ITS | Encounter Summary ---
Author Organization Healthcare Address [address] [place] [address] Care Team Providers Care Traffic Operations Manager Name Role Phone Zaira White MD Primary Care Provider Encounter Details Date Type Department Care Team ([facility] st Contact Info) Description 09/30/2024 12:52 PM EDT - 09/30/2024 1:44 PM EDT Emergency [facility] Emergency Department [address] [place] [address] Discharge Disposition: Left WIthout Being Seen Social History Tobacco Use Types Packs/Day Years Used Date Smoking Tobacco: Every Day Cigarettes 0.5 40 Smokeless Tobacco: Never Alcohol Use Standard Drinks/Week Comments No 0 (1 standard drink = 0.6 oz pur e alcohol) PHQ-2 Answer Date Recorded Patient Health Questionnaire-2 Score 0 05/07/2024 PHQ-2A Answer Date Recorded Depression Risk 0 03/22/2022 Comments No Sex and Gender Information Value Date Recorded Sex Assigned at Not on file Legal Sex Female 8:43 PM EDT Gender Identity Not on file Sexual Orientation Not on file documented as of this encounter Medications at Time of Discharge Medication Sig Dispense Quantity Refills Last Filled Start D ate End Date albuterol 108 (90 Base) MCG/ACT inhaler Inhale 2 puffs every 4 (four) hours as needed. 03/13/2019 azithromycin (Zithromax) 500 MG tablet 11/18/2020 bisacodyl (Dulcolax) 5 MG EC tablet Take 1 tablet (5 mg) by mouth 1 (one) time each day if needed for constipation. Do not crush, chew, or split. 90 Unspecified 08/10/2023 busPIRone (Buspar) 15 MG tablet TAKE 1 TABLET THREE TIMES DAILY 03/13/2019 carvedilol (Coreg) 12.5 MG tablet Take 1 tablet (12.5 mg) by mouth twice a day. 01/21/2022 carvedilol (Coreg) 25 MG tablet Take 0.5 tablets (12.5 mg) by mouth 2 (two) times a day with meals. 03/07 tab 05/25/2022 doxycycline (Monodox) 50 MG capsule 03/02/2022 DULoxetine (Cymbalta) [address] capsule 03/13/2019 Dupilumab (Dupixent) 300 MG/2ML solution auto-injector Inject 4 mL (600 mg) under the skin every 14 (fourteen) days. fluticasone (Flonase) 50 MCG/ACT nasal spray 03/13/2019 Fluticasone-Umec lidin-Vilant 100-62.5-25 MCG/INH aerosol powder Inhale 1 puff 1 (one) time each day. 07/27/2020 furosemide (Lasix) 40 MG tablet Take 1 tablet (40 mg) by mouth twice a day. 04/28/2020 ibuprofen 600 MG tablet TAKE 1 TABLET BY MOUTH EVERY SIX HOURS WITH FOOD NEEDED FOR PAIN 04/30/2020 Linzess 290 MCG capsule 01/18/2020 lisinopril-hydro CHLOROthiazide 20-25 MG tablet 03/13/2019 metoprolol succinate XL (Toprol-XL) 50 MG 24 hr tablet Take 50 mg by mouth 1 (one) time each day. 11/04/2020 multivitamin (Theragran) tablet Take 1 tablet by mouth 1 (one) time each day. pantoprazole (ProtoNix) 40 MG EC tablet Take 1 tablet (40 mg) by mouth 1 (one) time each day. 03/13/2019 predniSONE (Deltasone) 10 MG tablet 12/02/2020 rosuvastatin (Crestor) 10 MG tablet Take 1 tablet (10 mg) by mouth 1 (one) time each day. 08/16/2023 sodium chloride 3 % nebulizer solution Inhale 4 mL twice a day. 02/23/2024 topiramate 50 MG tablet 2 tablets (100 mg). torsemide (Demadex) 100 MG tablet Take 0.5 tablets (50 mg) by mouth daily. 05/24/2023 traMADol ER, biphasic, (Ryzolt) 100 MG 24 hr tablet Take 200 mg by mouth 1 (one) time each day. 09/18/2020 traMADol HCl 100 MG tablet Take by mouth. documented as of this encounter Plan of Treatment Upcoming Encounters Date Type Department Care Team (Late st Contact Info) Description 12/31/2024 1:00 PM EDT Office Visit [facility] Medicine Specialties [address], [address] [place] [address] Rian Witt MD [address] [place] [address] 05/06/2025 11:00 AM EST Appointment [facility] Radiology [address] [place] [address] 05/06/2025 2:20 PM EST Office Visit [facility] [address] [place] [address] Jonathan Lawler MD 800 [facility] [address] [place] [address] documented as of this encounter Visit Diagnoses Not on filedocumented in this encounter Additional Health Concerns Assessment Noted Time A fall risk assessment has been complete d for the patient 05/07/2024 11:10 AM EST A Body Mass Index follow-up plan has been documented for the patient 10/10/2023 10:43 AM EDT documented as of this encounter Care Teams Traffic Operations Manager Relationship Specialty Start Date End Date Zaira White MD [address] [facility] [address] [place] [address] PCP - General 07/17/20 documented as of this encounter
--- OUTSIDE RECORDS SUMMARY | 2024-11-13 12:09 | XMS_ITS | Encounter Summary ---
Author Organization [facility] Address [address] [place] [address] Care Team Providers Care Bark Skinner Name Role Phone Zaira White MD Primary Care Provider Encounter Details Date Type Department Care Team (Late Contact Info) Description 10/14/2024 Telephone [facility] Medicine Specialties [address] [place] [address] Ramonaenteryasmin, Physician, [address] [place], [place] [id number] Social History Tobacco Use Types Packs/Day Years [...] on file documented as of this encounter Plan of Treatment Upcoming Encounters Date Type Department Care Team (Late Contact Info) Description 12/31/2024 1:00 PM EDT Office Visit [facility] Medicine Specialties [address] [place] [address] Rian Witt MD [address] [place] [address] 05/06/2025 11:00 AM EST Appointment [facility] [address] [place] [address] 05/06/2025 2:20 PM EST Office Visit [facility] [address] [place] [address] Jonathan Lawler MD 800 [facility] [address] [place] [phone] documented as of this encounter Visit Diagnoses Not on filedocumented in this encounter Additional Health Concerns Assessment Noted Time A fall risk assessment has been complete d for the patient 05/07/2024 11:10 AM EST A Body Mass Index follow-up plan has been documented for the patient 10/10/2023 10:43 AM EDT documented as of this encounter Care Teams Bark Skinner Relationship Specialty Start Date End Date Zaira White MD [address] [facility] [address] [place] [address] PCP - General 07/17/20 documented as of this encounter
--- OUTSIDE RECORDS SUMMARY | 2024-11-13 12:09 | XMS_ITS | Clinical Summary ---
Author Organization [facility] Address [address] [place] [address] Care Team Providers Care Office Nurse Practitioner Name Role Phone Zaira White MD Primary Care Provider Allergies Active Allergy Reactions Criticality Noted Date Comments Ciprofloxacin Swelling,Unknown - Patient states they do not know rxn details High 06/04/2015 Mouth, rash Mouth, rash Sulfa Drugs Rash,Unknown - Patie nt states they do not know rxn details Low 06/04/2015 Tiotropium Rash Low 06/04/2015 Medications albuterol 108 (90 Base) MCG/ACT inhaler Inhale 2 puffs every 4 (four) hours as needed. 0 Active azithromycin (Zithromax) 500 MG tablet 1 Active busPIRone (Buspar) 15 MG tablet TAKE 1 TABLET THREE TIMES DAILY 0 Active DULoxetine (Cymbalta) [address] capsule 0 Active fluticasone (Flonase) 50 MCG/ACT nasal spray 0 Active Fluticasone-Ume clidin-Vilant 100-62.5-25 MCG/INH aerosol powder Inhale 1 puff 1 (one) time each day. 1 Active furosemide (Lasix) 40 MG tablet Take 1 tablet (40 mg) by mouth twice a day. 1 Active ibuprofen 600 MG tablet TAKE 1 TABLET BY MOUTH EVERY SIX HOURS WITH FOOD NEEDED FOR PAIN 1 Active Linzess 290 MCG capsule 0 Active pantoprazole (ProtoNix) 40 MG EC tablet Take 1 tablet (40 mg) by mouth 1 (one) time each day. 0 Active traMADol ER, biphasic, (Ryzolt) 100 MG 24 hr tablet Take 200 mg by mouth 1 (one) time each day. 1 Active lisinopril-hydr oCHLOROthiazide 20-25 MG tablet 0 Active metoprolol succinate XL (Toprol-XL) 50 MG 24 hr tablet Take 50 mg by mouth 1 (one) time each day. 1 Active topiramate 50 MG tablet 2 tablets (100 mg). Active predniSONE (Deltasone) 10 MG tablet 1 Active traMADol HCl 100 MG tablet Take by mouth. Active carvedilol (Coreg) 12.5 MG tablet Take 1 tablet (12.5 mg) by mouth twice a day. 2 Active doxycycline (Monodox) 50 MG capsule 2 Active carvedilol (Coreg) 25 MG tablet Take 0.5 tablets (12.5 mg) by mouth 2 (two) times a day with meals. / tab 3 Active torsemide (Demadex) 100 MG tablet Take 0.5 tablets (50 mg) by mouth daily. 4 Active bisacodyl (Dulcolax) 5 MG EC tablet Take 1 tablet (5 mg) by mouth 1 (one) time each day if needed for constipation . Do not crush, chew, or split. 90 Unspecified 4 Active multivitamin (Theragran) tablet Take 1 tablet by mouth 1 (one) time each day. Active sodium chloride 3 % nebulizer solution Inhale 4 mL twice a day. 4 Active rosuvastatin (Crestor) 10 MG tablet Take 1 tablet (10 mg) by mouth 1 (one) time each day. 4 Active Dupilumab (Dupixent) 300 MG/2ML solution auto-injector Inject 4 mL (600 mg) under the skin every 14 (fourteen) days. Active Active Problems Problem Noted Date Diagnosed Date Obesity (BMI 35.0-39.9 without comorbidity) 07/2024 Severe obesity (BMI 35.0-39.9) with comorbidity 05/08/2024 Shortness of breath 05/07/2023 Chest pain 05/07/2023 Dependence on continuous supplemental oxygen 05/2023 Abdominal pain 05/07/2023 Gastroesophageal reflux disease 05/07/2023 Morbid obesity with body mass index (BMI) of 40. 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 Encounters Date Type Department Care Team Description 10/14/2024 Telephone [facility] Medicine Specialties [address] [place] [address] Courtney tello, Physician, MD 10/10/2024 Telephone [facility] Medicine Specialties [address] [place] [address] Janel Saldivar RN 09/30/2024 12:52 PM EDT - 09/30/2024 1:44 PM EDT Emergency [facility] Emergency Department [address] [place] [address] Discharge Disposition: Left WIthout Being Seen 09/24/2024 [facility] [address] [place] [address] Zaira White MD LUQ abdominal pain (Primary Dx); Other dysphagia from Last 3 Months Family History Medical History Relation Name Comments Conversions - Other Father malignan t neoplasm of skin Skin cancer Father FH: skin cancer Breast cancer Maternal Grandmother FH: br east cancer Breast cancer Mother FH: breast can cer Lung cancer Other 1 Lung cancer Other 2 Lung cancer Other 3 Breast cancer Other 4 Conversions - Other Other 5 malignan t neoplasm of skin Relation Name Status Comments Father Maternal Grandmother Mother Other 1 Other 2 Other 3 Other 4 Other 5 Social History Tobacco Use Types Packs/Day Years Used Date Smoking Tobacco: Every Day Cigarettes 0.5 40 Smokeless Tobacco: Never Tobacco Cessation:Ready to Q uit: No; Counseling Given: Not Answered Alcohol Use Standard Drinks/Week Comments No 0 [...] on file Sexual Orientation Not on file Last Filed Vital Signs Vital Sign Reading Time Taken Comments Blood Pressure 112/79 05/07/2024 11:04 AM EST Pulse 115 05/07/2024 11:04 AM EST Temperature 36.6 C (97.9 F) 05/07/2024 11:04 AM EST Respiratory Rate 22 05/07/2024 11:04 AM EST Oxygen Saturation 95% 05/07/2024 11:04 AM EST Inhaled Oxygen Concentration - - Weight 91.3 kg (201 lb 4.5 oz) 05/07/2024 11:04 AM EST Height 160 cm (5' 3 ) 05/07/2024 11:04 AM EST Body Mass Index 35.66 05/07/2024 11:04 AM EST Plan of Treatment Upcoming Encounters Date Type Department Care Team (Late st Contact Info) Description 12/31/2024 1:00 PM EDT Office Visit [facility] [address] [place] [address] Rian Witt MD [address] [place] [address] 05/06/2025 11:00 AM EST Appointment [facility] Rad[facility] [address] [place] [address] 05/06/2025 2:20 PM EST Office Visit [facility] [address] [place] [address] Jonathan Lawler MD 800 [facility] [address] [place] [address] Health Maintenance Due Date Last Done Comments [facility]-HIV Screening 1966 [facility]-Infant/Child/Adol SDOH Screenings 1966 [facility]- SDOH Screenings 1984 [facility]-Adult SDOH Screenings 1984 [facility]-DTaP,Tdap,and Td Vaccines (1 - Tdap) 1985 [facility]-Hepatitis B Vaccines (1 of 3 - 19+ 3-dose series) 1985 [facility]-Zoster Vaccines (1 of 2) 1985 CT Colonography 2011 Colonoscopy 2011 FIT-DNA 2011 FIT 2011 FOBT 2011 Sigmoidoscopy 2011 [facility]-Colorectal Cancer Screening 2011 [id number] Vaccine (3 - Pfizer risk series) 03/30/2021 03/02/2021, 09/03/2020 [facility]-Pneumococcal Vaccine: 50+ Years (3 of 3 - PCV20 or PCV21) 04/25/2022 04/25/2017, 04/22/2016 [facility]-Medicare Annual Wellness (AWV) 05/31/2024 06/01/2023, 02/22/2021, 02/26/2020, Additional history exists [facility]-Influenza Vaccine (#1) 11/04/202411/29, 11/25/2021, 02/22/2021, Additional history exists [facility]-Depression Screening 05/07/2025 05/07/2024, 03/06 [facility]-Diabetes: Hemoglobin A1C 05/29/2025 05/29/2024, 11/30/2023, 06/01/2023, Additional history exists [facility]-Breast Cancer Screening 10/26/202510/05, 10/27/2023, 09/02/2022, Additional history exists [facility]-Obesity Intervention Completed 10/10/2023, 08/2023 [facility]-Lung Cancer Screening Discontinued 2024, 04/08/2024, 03/20/2023, Additional history exists [facility]-Hepatitis C Screening Completed 05/29/2024 HPV Vaccines Aged Out No longer eligi ble based on patient's age to complete this topic [facility]-HIB Vaccines Aged Out No longer e ligible based on patient's age to complete this topic [facility]-Hepatitis A Vaccines Aged Out No longer eligible based on patient's age to complete this topic [facility]-IPV Vaccines Aged Out No longer e ligible based on patient's age to complete this topic [facility]-Rotavirus Vaccines Aged Out No lo nger eligible based on patient's age to complete this topic Procedures Procedure Name Priority Date/Time Associated Diagnosis Comments CT CHEST WO IV CONTRAST Routine 05/07/2024 8:14 AM EST Diffuse idiopathic pulmonary neuroendocrine cell hyperplasia from Last 3 Months or Most Recently Relevant to Health Maintenance Results * CT Chest wo IV Contrast (05/07/2024 8:14 AM EST) Anatomical Region Laterality Modality Chest Computed Tomogra phy Impressions 05/07/2024 9:55 AM EST Stable bilateral pulmonary nodules. No new suspicious pulmonary nodules. CRITICAL RESULT: No. COMMUNICATION: Per this written report. By electronically signing this report, I, the attending physician, attest that I have personally reviewed the images/data for the above examination(s) and agree with the final edited report. 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 Total DLP (Dose-Length Product): 215.24 mGy.cm. Please note: The reported value represents the total of one or more individual components during the CT acquisition on this date and at this time, and as such, the same value may appear in more than one CT report depending on the interpreting/reporting physicians. COMPARISON: CT chest 03/22/2022 FINDINGS: Limited due to motion artifact. Mediastinum and Pleura: No mediastinal adenopathy. Calcified mediastinal and left hilar granulomas. Mild coronary artery calcifications. Mitral annular calcifications. No pleural or pericardial effusion. Lungs: Central airways are patent. Post surgical changes of prior left upper lobe wedge resection. Similar mosaic attenuation of the lungs. Unchanged bilateral pulmonary nodules. For example unchanged 4 mm left lower lobe nodule (series 4 image 212). No significant interval change in size of 6 mm left lower lobe pulmonary nodule (series 4 image 198). No new suspicious pulmonary nodules. Calcified left apical granuloma. Upper Abdomen: Splenic granulomas. Prior cholecystectomy. Postcholecystectomy extrahepatic biliary ductal ectasia. Changes of prior gastric bypass surgery, with unchanged small hiatal hernia containing the gastric pouch. Musculoskeletal: No suspicious lytic or sclerotic lesion. No axillary adenopathy. 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 Total DLP (Dose-Length Product): 215.24 mGy.cm. Please note: The reportedvalue represents the total of one or more individual components during theCT acquisition on this date and at this time, and as such, the same valuemay appear in more than one CT report depending on theinterpreting/reporting physicians. COMPARISON: CT chest 03/22/2022 FINDINGS: Limited due to motion artifact. Mediastinum and Pleura: No mediastinal adenopathy. Calcified mediastinaland left hilar granulomas. Mild coronary artery calcifications. Mitralannular calcifications. No pleural or pericardial effusion. Lungs: Central airways are patent. Post surgical changes of prior leftupper lobe wedge resection. Similar mosaic attenuation of the lungs.Unchanged bilateral pulmonary nodules. For example unchanged 4 mm leftlower lobe nodule (series 4 image 212). No significant interval change insize of 6 mm left lower lobe pulmonary nodule (series 4 image 198). No newsuspicious pulmonary nodules. Calcified left apical granuloma. Upper Abdomen: Splenic granulomas. Prior cholecystectomy.Postcholecystectomy extrahepatic biliary ductal ectasia. Changes of priorgastric bypass surgery, with unchanged small hiatal hernia containing thegastric pouch. Musculoskeletal: No suspicious lytic or sclerotic lesion. No axillaryadenopathy. IMPRESSION: Stable bilateral pulmonary nodules. No new suspicious pulmonary nodules. CRITICAL RESULT: No. COMMUNICATION: Per this written report. By electronically signing this report, I, the attending physician, attestthat I have personally reviewed the images/data for the aboveexamination(s) and agree with the final edited report. Drafted by James Nicole MD on 05/07/2024 9:14 AM Final report signed by Silas Pedersen MD on 05/07/2024 9:55 AM us Jenniffer Leung APRN IMG CT PROCEDURES Final Res ult from Last 3 Months or Most Recently Relevant to Health Maintenance Insurance [employer] MEDICARE [facility] Care Teams Office Nurse Practitioner Relationship Specialty Start Date End Date Zaira White MD [address] [place] [address] PCP - General 07/17/20
--- OUTSIDE RECORDS SUMMARY | 2024-11-13 12:09 | XMS_ITS | Encounter Summary ---
Author Organization Healthcare Address [address] [place] [address] Care Team Providers Care Pipefitter Helper Name Role Phone Zaira White MD Primary Care Provider Encounter Details Date Type Department Care Team (Late st Contact Info) Description 10/10/2024 Telephone [facility] [address] [place] [address] Janel Saldivar, RN [facility] Social History Tobacco Use Types Packs/Day Years [...] on file documented as of this encounter Miscellaneous Notes * Telephone Encounter - Karen Baird - 10/16/2024 1:27 PM EDT Status Update Call #1 1st call regarding the status of the initial request. Patient calling back she missed call from Faith and would like call back please Best contact number: Other: [phone] patient would like direct number left if no answer she states she has a block on her phone due to telemarketers Optimal time of day to reach caller: ANYTIME Additional comments/information from caller: None Note: Please do not reply to this message. Follow-up communication and further actions as a result of this message need to be communicated with the patient directly, if the patient is not active onMyChart. If the patient is active on MyChart, they will receive notification of the communication/outcome via MyChart. * Telephone Encounter - Rachana Wren - 10/11/2024 9:05 AM EDT Lvm for cb to schedule OV in [facility] documented in this encounter Plan of Treatment Upcoming Encounters Date Type Department Care Team (Late st Contact Info) Description 12/31/2024 1:00 PM EDT Office Visit [facility] Medicine Specialties [address] [place] [address] Rian Witt MD [address] [place] [address] 05/06/2025 11:00 AM EST Appointment [facility] [address] [place] [phone] 05/06/2025 2:20 PM EST Office Visit [facility] [address] [place] [address] Jonathan Lawler MD 800 [facility] [address] [place] [phone] documented as of this encounter Visit Diagnoses Not on filedocumented in this encounter Additional Health Concerns Assessment Noted Time A fall risk assessment has been complete d for the patient 05/07/2024 11:10 AM EST A Body Mass Index follow-up plan has been documented for the patient 10/10/2023 10:43 AM EDT documented as of this encounter Care Teams Pipefitter Helper Relationship Specialty Start Date End Date Zaria White MD [address] [place] [address] PCP - General 07/17/20 documented as of this encounter
--- OUTSIDE RECORDS SUMMARY | 2024-11-13 12:09 | XMS_ITS | Clinical Summary ---
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 Z79.2 (ICD-10-CM ) 11/17 Active 11/17 Adenike Jole correction (current) use of antibiotics Personal history of allergy to other antibiotic agent 375384305 (SNOMED CT) 08/25 Inactive 08/25 Adenike Joel Allergy to antibacterial drug CHF 75407049 (SNOMED CT) 08/25 Inactive 08/25 Adenike Joel Congestive heart failure Obstructive sleep apnea 83285596 (SNOMED CT) 08/25 Inactive 08/25 Adenike Joel Obstructive sleep apnea syndrome COPD 76359535 (SNOMED CT) 08/25 Active 08/25 Adenike Joel Chronic obstructive pulmonary disease Nausea 381920887 (SNOMED CT) 10/12 Inactive 10/12 Adenike Joel Nausea Costochondrit is, acute 27137096 (SNOMED CT) 10/18 Active 10/18 Mario Tse MD Costal chondritis Nausea 700408000 (SNOMED CT) 10/12 Removed 10/12 Laura Tse Nausea Morbid obesity due to excess calories E66.01 (ICD-10-CM ) 08/25 Active 08/25 Adenike Joel Morbid (severe) obesity due to excess calories Respiratory bronchiolitis associated interstitial lung disease 815459854 (SNOMED CT) 08/25 Inactive 08/25 Adenike Joel Respiratory bronchiolitis associated interstitial lung disease Chronic respiratory failure with hypercapnia J96.12 (ICD-10-CM ) 09/14 Active 09/14 Adenike Jeol Chronic respiratory failure with hypercapnia Chronic respiratory failure with hypoxia J96.11 (ICD-10-CM ) 09/09 Active 09/09 Adenike Joel Chronic respiratory failure with hypoxia Respiratory failure, chronic 55295258 (SNOMED CT) 09/09 Inactive 09/09 Mario Tse MD Chronic respiratory failure Tobacco abuse, cigarettes 29105710 (SNOMED CT) 08/25 Active 08/25 Berna W Cigarette smoker 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 (ICD-10-CM ) 08/25 Active 08/25 Berna W Pulmonary mycobacterial infection Respiratory bronchiolitis associated interstitial lung disease 119613626 (SNOMED CT) 08/25 Removed 08/25 Berna W Respiratory bronchiolitis associated interstitial lung disease Morbid obesity 363278860 (SNOMED CT) 08/25 Inactive 08/25 Berna W Morbid obesity Obstructive sleep apnea 82183932 (SNOMED CT) 08/25 Removed 08/25 Berna W Obstructive sleep apnea syndrome CHF 51401439 (SNOMED CT) 08/25 Removed 08/25 Berna W Congestive heart failure SEVERE COPD J44.9 (ICD-10-CM ) 08/25 Inactive 08/25 Berna W Chronic obstructive pulmonary disease, unspecified Hemoptysis 81388089 (SNOMED CT) 08/25 Active 08/25 Berna W Hemoptysis Personal history of allergy to other antibiotic agent 567635376 (SNOMED CT) 08/25 Removed 08/25 Berna W Allergy to antibacterial drug HX SULFA ALLERGY Z88.2 (ICD-10-CM ) 08/25 Active 08/25 Berna W Allergy status to sulfonamides Medications Medication Instructions Start Date Stop Date Generic Name NDC Provider RIFAMPIN 300 MG CAPS Take 2 tablets by every Monday, Monday, and Monday RIFAMPIN [id number] Mario Tse MD ETHAMBUTOL HCL 400 MG TABS Take 3 tablets by mouth every Monday, Monday, and Monday ETHAMBUTOL HCL 81578570822 Mario Tse MD BIAXIN XL 500 MG ORAL TABLET EXTENDED RELEASE 24 HOUR Take 2 tablets by mouth every Monday, Monday, and Monday CLARITHROMYCIN 80428514413 Mario Tse MD RIFAMPIN 300 MG CAPS Take 2 tablets by mouth every -- RIFAMPIN 88394961586 Mario Tse MD ETHAMBUTOL HCL 400 MG TABS Take 3 tablets by mouth every - ETHAMBUTOL HCL 50395646619 Mario Tse MD BIAXIN 500 MG ORAL TABLET 2 by mouth every CLARITHROMYCIN 39239887053 Mario Tse MD ZOFRAN 4 MG ORAL TABLET Take one tablet by mouth every 6 hours as needed for nausea ONDANSETRON HCL 88790036142 Mario Tse MD RIFAMPIN 300 MG CAPS Take 2 capsules by mouth on Monday, Monday, and Monday each week RIFAMPIN 81618809830 Veronica Mcbride CLARITHROMYCIN 500 MG TABS Take 2 tabs by mouth on Monday, Monday, and Monday each week. CLARITHROMYCIN 95438046064 Veronica Mcbride BREO ELLIPTA 200-25 MCG/ACT AEPB FLUTICASONE FUROATE-VILANTER OL 78794187340 Veronica Mcbride PROAIR HFA AEROSOL SOLUTION ALBUTEROL SULFATE AERS 49840861684 Veronica Mcbride PREVACID 15 MG ORAL CAPSULE DELAYED RELEASE by mouth daily LANSOPRAZOLE 81919833115 Veronica Mcbride CLARITIN 10 MG TABS by mouth daily LORATADINE 20212999751 Veronica Mcbride DEMADEX 20 MG ORAL TABLET by mouth daily TORSEMIDE 63232925915 Veronica Mcbride CARTIA XT 240 MG [id number] by mouth daily DILTIAZEM HCL COATED BEADS 09449589225 Veronica Mcbride VERAPAMIL HCL ER 360 MG [id number] take 1 capsule daily 08/26 VERAPAMIL HCL 34084997326 Veronica Mcbride VALACYCLOVIR HCL 500 MG TABS take 1 tablet daily 08/26 VALACYCLOVIR HCL 72960867307 Veronica Mcbride TOPAMAX 50 MG TABS take 1 tablet daily 08/26 TOPIRAMATE 55484870436 Veronica Mcbride PROTONIX 40 MG TBEC take 1 tablet daily 08/26 PANTOPRAZOLE SODIUM 26908746150 Veronica Mcbride MONTELUKAST SODIUM 10 MG TABS take 1 tablet daily 08/26 MONTELUKAST SODIUM 09307806865 Veronica Mcbride IPRATROPIUM-ALBUT ANG 0.5-2.5 (3) MG/3ML SOLN 08/26 IPRATROPIUM-ALBU TEROL 13699409139 Veronica Mcbride CARDIZEM CD 240 MG [id number] 08/26 DILTIAZEM HCL COATED BEADS 56680904485 Veronica Mcbride CLARITHROMYCIN 500 MG TABS 08/26 CLARITHROMYCIN 92748242181 Veronica Mcbride EDARBYCLOR 40-25 MG TABS 08/26 AZILSARTAN-CHLOR THALIDONE 66630655923 Veronica Mcbride PROVENTIL HFA 108 (90 Base) MCG/ACT INHALATION AEROSOL SOLUTION 08/26 ALBUTEROL SULFATE 36910171397 Veronica Mcbride ALBUTEROL SULFATE (2.5 MG/3ML) 0.083% NEBU 08/26 ALBUTEROL SULFATE 49361436348 Veronica Mcbride FORTAZ (IV) 08/26 FORTAZ (IV) Veronica Mcbride RIFAMPIN 300 MG CAPS Take 2 capsules by mouth on Monday, Monday, and Monday each week 0 09/03 RIFAMPIN 73483881460 Mario Tse MD ETHAMBUTOL HCL 400 MG TABS Take 3 tabs by mouth on Monday,. Monday, and Monday each week ETHAMBUTOL HCL 33712267449 Mario Tse MD CLARITHROMYCIN 500 MG TABS Take 2 tabs by mouth on Monday, Monday, and Monday each week. 10/18 CLARITHROMYCIN 00528514702 Mario Tse MD VERAPAMIL HCL ER 360 MG [id number]-FRU take 1 capsule daily 9/05 VERAPAMIL HCL 31225930575 Veronica Mcbride CARDIZEM CD 240 MG HN12F-VQU 4/ DILTIAZEM HCL COATED BEADS 26996019557 Veronica Mcbride IPRATROPIUM-ALBUT ANG 0.5-2.5 (3) MG/3ML SOLN 9/05 IPRATROPIUM-ALBU TEROL 69132752526 Veronica Mcbride BREO ELLIPTA 200-25 MCG/ACT AEPB 03/13 FLUTICASONE FUROATE-VILANTER OL 18727876513 Veronica Mcbride FORTAZ (IV) 08/26 FORTAZ (IV) Veronica Mcbride ALBUTEROL SULFATE (2.5 MG/3ML) 0.083% NEBU 4 ALBUTEROL SULFATE 18240811482 Sloan Downing PROVENTIL HFA 108 (90 Base) MCG/ACT INHALATION AEROSOL SOLUTION 08/26 ALBUTEROL SULFATE 83433454638 Sloan Downing EDARBYCLOR 40-25 MG TABS 08/26 AZILSARTAN-CHLOR THALIDONE 27795761047 Sloan Downing BUSPIRONE HCL 15 MG TABS BUSPIRONE HCL 32871142269 Sloan Downing CLARITHROMYCIN 500 MG TABS 08/26 CLARITHROMYCIN 01384973721 Sloan Downing CARDIZEM CD 240 MG [id number]-SOF 4/01 DILTIAZEM HCL COATED BEADS 21037497358 Sloan Downing DULOXETINE HCL 60 MG CPEP DULOXETINE HCL 73754188877 Sloan Downing EPIPEN 2-BETTIE 0.3 MG/0.3ML SOAJ EPINEPHRINE 60786708343 Sloan Downing FLONASE 50 MCG/ACT NASAL SUSPENSION FLUTICASONE PROPIONATE 08079830611 Sloan Downing BREO ELLIPTA 200-25 MCG/ACT AEPB 03/13 FLUTICASONE FUROATE-VILANTER OL 68467580905 Sloan Downing ADVIL 200 MG TABS IBUPROFEN 73551373833 Sloan Downing IPRATROPIUM-ALBUT ANG 0.5-2.5 (3) MG/3ML SOLN 9 IPRATROPIUM-ALBU TEROL 58848912462 Sloan Downing MONTELUKAST SODIUM 10 MG TABS take 1 tablet daily 08/26 MONTELUKAST SODIUM 69515182731 Sloan Downing PROTONIX 40 MG TBEC take 1 tablet daily 08/26 PANTOPRAZOLE SODIUM 49927173402 Sloan Downing TOPAMAX 50 MG TABS take 1 tablet daily 06/04 TOPIRAMATE 49311831180 Sloan Downing VALACYCLOVIR HCL 500 MG TABS take 1 tablet daily 0 4 VALACYCLOVIR HCL 67253975648 Sloan Downing VERAPAMIL HCL ER 360 MG [id number]-XPI take 1 capsule daily 9 VERAPAMIL HCL 07706845343 Sloan Downing Medications Administered No information available. Allergies, Adverse Reactions, Alerts Allergy Name Reaction Description Start Date Severity Statu s Provider SULFA Moderate Active Veronica D BACTRIM Critical Active Sloan Chang SPIRIVA HANDIHALER Severe Active Sloan Downing CIPRO Swelling Moderate Active Sloan Downing Results Date Name Value Unit Range Flag Description Office Visit: rm #11 MEDS REVIEW Done Documenta tion of current medications (procedure) SMOK ADVICE yes Smoking c essation education (procedure) DIET RN RESOURCE NURSE yes Dietary management education, guidance, and counseling (procedure) ORALTOBACUSE Never Tobacco smoking status CIGARET SMKG yes Tobacco smoking status SMOK STATUS Current every day smoker Tobacco smoking status Lab Report: COMPREHENSIVE SC TABOLIC PANEL ANIONGAP -1.0 mmol/L 3.0-11.0 L anion gap, serum BUN/CREAT 20.0 7.0-25.0 Urea nitrogen/Creatinine [Mass Ratio] in Serum or Plasma ZZ-GE-unk 1.3 g/dL GE use only - for [employer] import when terms are not otherwise specified GFRC 131 mL/min/1 .73m2 >60 Glomerular Filtration Rate Calculation BILI TOTAL 0.4 mg/dL 0.3-1.2 Bilirubin. total [Mass/volume] in Serum or Plasma ALK PHOS 108 U/L 25-100 H Alkaline constantino sphatase [Enzymatic activity/volume] in Blood SGOT (AST) 19 U/L 0-33 Aspartate aminotransferase [Enzymatic activity/volume] in Serum or Plasma SGPT (ALT) 17 U/L 7-40 Alanine aminotransferase [Enzymatic activity/volume] in Serum or Plasma ALBUMIN 3.70 g/dL 3.20-4.80 Albumin [Mass/volume] in Serum or Plasma PROTEIN, TOT 6.5 g/dL 5.7-8.2 Protein [Mass/volume] in Serum or Plasma CALCIUM 9.1 mg/dL 8.7-10.4 Calcium [Moles/volume] in Serum or Plasma CO2 39.0 mmol/L 20.0-31.0 H Carbon diox cm, total [Moles/volume] in Venous blood CHLORIDE 104 mmol/L 99-109 Chloride [Moles/volume] in Serum or Plasma POTASSIUM 4.5 mmol/L 3.5-5.5 Potassium [Moles/volume] in Serum or Plasma SODIUM 142 mmol/L 132-146 Sodium [Moles/volume] in Serum or Plasma CREATININE 0.50 mg/dL 0.60-1.30 L Creatini ne [Mass/volume] in Serum or Plasma BUN 10 mg/dL 9-23 Urea nitrogen [Mass/volume] in Serum or Plasma GLUCOSE SER 106 mg/dL 70-100 H Glucose [Mass/volume] in Serum or Plasma Lab Report: C-REACTIVE PROTE IN CRPCARDRISK 2.70 MG/DL 0.00-10.0 0 C reactive protein [Mass/volume] in Serum or Plasma Lab Report: SEDIMENTATION RA TE ESR 30 mm/h 0-20 H Erythrocyte sedimentation rate by Westergren method Lab Report: CBC WITH AUTO DI FFERENTIAL IMMATUREGRAN 0.01 10*3/MM3 0.00-0.03 Immature granulocytes [#/volume] in Blood BASO# 0.02 10*3/mm3 0.00-0.20 Basophils [#/vol ume] in Blood EOS ABSLT 0.14 10*3/uL 0.10-0.30 Eosinophi ls [#/volume] in Blood MONOSCT AUTO 0.42 10*3/uL 0.00-1.00 Monocy pito [#/volume] in Blood by Automated count LYMPHCT AUTO 2.74 10*3/mm3 0.60-4.80 Lymph ocytes [#/volume] in Blood by Automated count ABS NEUTROPH 2.84 10*3/uL 1.50-8.30 Neutro phils [#/volume] in Blood IMM GRANU % 0.2 % 0.0-0.6 Immature granulocytes/100 leukocytes in Blood % EOS AUTO 2.3 % 0.0-3.0 Eosinophil s/100 leukocytes in Blood by Automated count MONOCYTE % 6.8 % 0.0-12.0 Monocytes /100 leukocytes in Blood by Automated count LYMPHOCY BF 44.4 % 24.0-44.0 H lymphoc ytes as percent of body fluid leukocytes PMN % 46.0 % 41.0-71.0 Neutrophils /100 leukocytes in Blood by Automated count PLATELETS 268 10*3/mm3 150-450 Platelets [#/volume] in Blood by Automated count RDW 17.7 % 11.3-14.5 H Erythrocyte distribution width [Ratio] by Automated count MCHC 29.3 G/DL 32.0-36.0 L MCHC [Mass/ volume] by Automated count MCH 20.7 pg 27.0-31.0 L MCH [Entiti c mass] by Automated count MCV 70.7 fL 80.0-99.0 L MCV [Entiti c volume] by Automated count HCT 37.9 % 34.5-44.0 Hematocrit [Volume Fraction] of Blood by Automated count HGB 11.1 g/dL 11.5-15.5 L Hemoglobin [Mass/volume] in Blood RBC 5.36 10*6/mm3 3.89-5.14 H Erythrocyt es [#/volume] in Blood by Automated count WBC 6.17 10*3/mm3 3.50-10.8 0 Leukocytes [#/volume] in Blood by Automated count Plan of Care Type Date Detail Pending order STAT Labs Pending order CMP Pending order CBC with Differe ntial Pending order C- reactive prot ein Pending order Sedimentation Ra te (ESR) Pending order STAT Labs Pending order STAT Labs Pending order Continue oral an tibiotics Pending order CMP Pending order CBC with Differe ntial Pending order Sedimentation Ra te (ESR) Pending order C- reactive prot ein Pending order CBC with Differe ntial Pending order CMP Pending order Sedimentation Ra te (ESR) Pending order C- reactive prot ein Pending order Continue oral an tibiotics Pending order X-Ray, Chest, PA & Lateral Pending order STAT Labs Pending order CBC with Differe ntial Pending order Sputum Culture & Sensitivity Pending order Gram Stain Pending order STAT Labs Pending order CMP Pending order CBC with Differe ntial Pending order Continue oral an tibiotics Pending order STAT Labs Pending order Continue oral an tibiotics Pending order CMP Pending order CBC with Differe ntial Pending order STAT Labs Pending order CMP Pending order CBC with Differe ntial Pending order Sedimentation Ra te (ESR) Pending order C- reactive prot ein Pending order CBC with Differe ntial Pending order Sedimentation Ra te (ESR) Pending order C- reactive prot ein Pending order CMP Pending order STAT Labs Pending order Other Patient education WEIGHT%20MANAG EMENT Patient education Medications Patient education HOW%20TO%20STO P%20SMOKING Procedures Code Procedure Name Date Entry Date CPT-10322 CMP [id number] CBC with Differential 2015 CPT-17808 C- reactive protein CPT-12256 Sedimentation Rate (ESR) 201 08/13/12 CPT-Cooral Continue oral antibiotics 20 20/11/07 CPT-82958 CMP [id number] CBC with Differential 2015 CPT-65683 Sedimentation Rate (ESR) 201 08/13/07 CPT-84058 C- reactive protein CPT-77004 Flu Vaccine CPT-82218 Tclacdu92 [id number] CBC with Differential 2015 CPT-48308 CMP CPT-78039 Sedimentation Rate (ESR) 201 08/12/06 CPT-02732 C- reactive protein CPT-Cooral Continue oral antibiotics 20 19/10/17 CPT-06403 X-Ray, Chest, PA & Lateral 2 CPT-sl STAT Labs [id number] CBC with Differential 2015 CPT-72277 Sputum Culture & Sensitivity CPT-26299 Gram Stain CPT-sl STAT Labs CPT-51839 CMP [id number] CBC with Differential 2015 CPT-Cooral Continue oral antibiotics 20 19/10/08 CPT-sl STAT Labs CPT-Cooral Continue oral antibiotics 20 18/09/06 CPT-53487 [facility] [id number] CBC with Differential 2015 CPT-sl STAT Labs CPT-48501 CMP [id number] CBC with Differential 2015 CPT-43062 Sedimentation Rate (ESR) 201 08/10/05 CPT-30284 C- reactive protein [id number] CBC with Differential 2015 CPT-27916 Sedimentation Rate (ESR) 201 08/09/22 CPT-85727 C- reactive protein CPT-19756 CMP CPT-sl STAT Labs CPT-LAB Other Vital Signs Date Name Value Unit Description BMI (Body Mass Index) 38.57 kg/m2 Bod y Mass Index (Ratio) Body Temperature 98.2 [degF] temperat ure E&M BP Diastolic 100 mm[Hg] blood pressu re, diastolic BP Systolic 180 mm[Hg] blood pressur e, systolic Heart Rate 90 /min pulse rate Respiratory Rate 18 /min respirat ory rate E&M Weight Measured 231.8 [lb_av] weight E& M Weight Measured 231.8 [lb_av] weight E& M Height 65 [in_us] height E&M Immunizations No information available. Advance Directives Directive Description Start Date LIVING WILL ON FILE
--- OUTSIDE RECORDS SUMMARY | 2024-11-13 12:09 | XMS_ITS | Encounter Summary ---
Author Organization [facility] Address [address] [place] [address] Care Team Providers Care Primer Waterproofing Machine Adjuster Name Role Phone Zaira White MD Primary Care Provider Reason for Referral * Consultation (Routine) - Authorized Specialty Diagnoses / Procedures Referred By Neelam lerma Referred To Contact Gastroenterology Diagnoses LUQ abdominal pain Other dysphagia Zaira White MD [address] [place] [address] Phone: tel: fax: Referral ID Status Reason Start Date Expiration Date Visits Requested Visits Authorized [id number] Authorized Specialty Services Required 09/24/2024 03/26/2026 1 1 Encounter Details Date Type Department Care Team (Late st Contact Info) Description 09/24/2024 Community [facility] [address] [place] [address] Zaira White MD [address] [place] [address] LUQ abdominal pain (Primary Dx); Other dysphagia Social History Tobacco Use Types Packs/Day Years [...] Description 12/31/2024 1:00 PM EDT [facility] [address] [place] [address] Rian Witt MD [address] [place] [address] 05/06/2025 11:00 AM EST Appointment [facility] [address] [place] [address] 05/06/2025 2:20 PM EST Office Visit [facility] [address] [place] [address] Jonathan Lawler MD [address] [facility] [address] [place] [address] Scheduled Referrals Name Type Priority Associated Diagnoses Order Schedule Ambulatory referral to Gastroenterology Outpatient Referral Routine LUQ abdominal pain Other dysphagia Expected: 09/24/2024 (Approximate), Expires: 03/28/2026 documented as of this encounter Visit Diagnoses Diagnosis LUQ abdominal pain- Primary Abdominal pain, left upper quadrant Other dysphagia documented in this encounter Additional Health Concerns Assessment Noted Time A fall risk assessment has been complete d for the patient 05/07/2024 11:10 AM EST A Body Mass Index follow-up plan has been documented for the patient 10/10/2023 10:43 AM EDT documented as of this encounter Care Teams Primer Waterproofing Machine Adjuster Relationship Specialty Start Date End Date Zaira White MD [address] [place] [address] PCP - General 07/17/20 documented as of this encounter
[2024-11-13 12:16] LABS: Microscopic, Urine URINE MICROSCOPIC (MICROSCOPIC)
[2024-11-13 12:34] LABS: Hematocrit 42.4 % (37.0-47.0); Hemoglobin 13.2 g/dL (12.2-16.2); Immature Granulocytes % 0.3 %; Mean Corpuscular HGB Conc 31.1 g/dL (31.8-35.4); Mean Corpuscular Hemoglobin 24.8 pg (27.0-31.2); Mean Corpuscular Volume 79.5 fl (81-99); Nucleated Red Blood Cells % 0 %; Platelet Count 275 K/mm3 (142-424); Red Blood Count 5.33 M/mm3 (4.20-5.40); Red Cell Distribution Width-SD 50.6 fL; White Blood Count 7.9 K/mm3 (4.8-10.8)
[2024-11-13 13:01] LABS: Bilirubin,Urine Negative (Negative); Color,Urine YELLOW (Yellow); Glucose,Urine (UA) Negative (Negative); Ketones,Urine Negative (Negative); Leukocyte Esterase,Urine Negative (Negative); PH,Urine 6.0 (5.0-8.5); Protein,Urine Negative (Negative); Specific Gravity, Urine 1.010 (1.005-1.030); Urobilinogen,Urine 0.2 EU/dl (0.2)
[2024-11-13 13:11] LABS: Bacteria,Urine Trace /lpf
== END 2024-11-13 23:59 | disposition home or self-care (01) ==
LOC: LAB 12:07
PROVIDERS: PCP Internal Medicine
DX: N28.9 Disorder of kidney and ureter, unspecified (principal)
CPT/HCPCS: 36415; 81001; 82570; 84156; 85025

== ENCOUNTER 2025-01-22 09:03 | Day surgery (SDC) | payer MEDICARE, SELFPAY ==
--- NOTE | 2025-01-17 10:57 | EXP.HP ---
History of Present Illness *Admission Date: 01/22/25 *History of present illness: Mrs. Good is a 59-year-old female who is here for diagnostic EGD. She does have left upper quadrant abdominal pain that occurs postprandially. She feels as if food gets stuck in her stomach. This has occurred intermittently for many years but is worsening. The patient previously had a Eladio-en-Y gastric bypass in 2005. She did have a colonoscopy with me in June 2021. At that time, I found a single polyp (tubular adenoma) and left-sided diverticulosis. The patient did have an EGD with Dr. Donte Lopez in early 2021 and there was reported gastritis. She does have a long history of IBS. Her father had colon cancer in his 50s. The examination is deemed medically necessary for diagnostic EGD. The patient has been seen, interviewed and examined prior to the procedure by both myself and the anesthesia provider. [facility] Disclaimer: The information contained in this section may have been updated after the patient was seen, as this information can be updated by other users. 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 History of lung cancer Hypertension Hyperlipidemia Fibromyalgia History of gastric cancer Dyslipidemia Arthritis Bipolar 1 disorder Endometriosis Migraine Seasonal allergies IBS (irritable bowel syndrome) Edema GERD without esophagitis Asthma CAD (coronary artery disease) Depression with anxiety CHF (congestive heart failure) COPD (chronic obstructive pulmonary disease) Surgical History History of lobectomy of lung Status post osteotomy H/O oophorectomy H/O: hysterectomy Gastric bypass status for obesity History of endoscopy History of cardiac cath History of bronchoscopy Social History (Updated 01/22/25 @ 10:35 by Maggi Reid CRNA) Smoking Status: Current every day smoker tobacco type: cigarettes packs per day: 1 alcohol intake: never substance use type: unknown current occupational status: disabled and other Travel in the last 8 weeks?: None household members: spouse housing: house lives independently: Yes marital status: education level: high school Have you lived/traveled outside [place] in past 30 days?: No Contact w/someone who lives/traveled outside [place] past 30 days?: No Exposure to someone with infectious disease in past 14 days?: No Do you have a fever (greater than 100.4 F or 38 C)?: No Have you tested positive for COVID-19?: No Exposed to someone with COVID-19 in past 14 days?: No Do you have a sore throat?: No Do you have a cough?: No Do you have any weakness?: No Do you have any diarrhea?: No Are you experiencing any unusual bleeding?: No Do you have any muscle aches/pain?: No Do you have any abdominal pain?: No Are you experiencing loss of taste or smell?: No Other Medical History Have you received the Flu Vaccine for this season: No Have you received the Pneumonia Vaccine: No Review of Systems Review of Systems Review of systems (narrative): Negative *Cardiovascular Comments: Negative *Gastrointestinal Comments: Negative *Genitourinary Comments: Negative *Musculoskeletal Comments: Negative *Neurologic Comments: Negative Meds Home Medications and Allergies Home Medications ?Medication ?Instructions ?Recorded ?Confirmed ?Type albuterol sulfate 90 mcg/actuation 2 puff inhalation QID PRN COPD 04/08/22 01/22/25 History aerosol inhaler buspirone 15 mg tablet 15 mg PO TID Depression with 04/08/22 01/22/25 History Anxiety duloxetine 60 mg capsule,delayed 60 mg PO DAILY Depression with 04/08/22 01/22/25 History release Anxiety fluticasone propionate 50 2 spray intranasal DAILY 04/08/22 01/22/25 History mcg/actuation nasal Congestion/chest congesti spray,suspension (Flonase Allergy Relief) topiramate 100 mg tablet 50 mg PO DAILY Migraine 04/08/22 01/22/25 History fluticasone fur. 200 mcg-umeclid 1 inh inhalation DAILY COPD 05/04/22 01/22/25 History 62.5 mcg-vilant 25 mcg inhalat.powder pantoprazole 40 mg tablet,delayed 40 mg PO BID 05/04/22 01/22/25 History release carvedilol 25 mg tablet (Coreg) 25 mg PO BID #60 tabs 05/25/22 01/22/25 Rx albuterol sulfate 1.25 mg/3 mL 1.25 mg inhalation Q6H PRN soa 11/19/24 01/22/25 History solution for nebulization multivitamin 1 tab PO DAILY 11/19/24 01/22/25 History potassium chloride 10 mEq 10 meq PO ONCE 11/19/24 01/22/25 History tablet,extended release(part/cryst) torsemide 100 mg tablet 100 mg PO BID 11/19/24 01/22/25 History linaclotide 290 mcg capsule 290 mcg PO DAILY IBS 12/07/24 01/22/25 History New Prescriptions to Start Prescriptions: Allergies Allergy/AdvReac Type Severity Reaction Status Date / Time Sulfa (Sulfonamide Allergy Intermediate Rash Verified 01/22/25 10:11 Antibiotics) tiotropium (From Spiriva Allergy Intermediate Rash Verified 01/22/25 10:11 with HandiHaler) ciprofloxacin AdvReac Severe Swelling Verified 01/22/25 10:11 of Lip/Tongue/Throat Exam *Routine HEENT Exam Head: Present normocephalic Eye: Present EOMI and PERRL ENT: Present mucous membranes moist *Routine Neck Exam Neck: Present supple *Routine Respiratory Exam Respiratory: Present CTA bilaterally *Routine Cardiovascular Exam Cardiovascular: Present RRR *Routine Abdominal Exam Abdominal: Present soft and normoactive bowel sounds; Absent tenderness *Routine Rectal Exam Rectal:: deferred *Routine Genitalia Exam Genitalia:: deferred *Routine Extremities Exam Extremities: Absent cyanosis, clubbing or edema *Routine Skin Exam Skin: Present warm; Absent rash *Routine Neurological Exam Neurological: Present alert and oriented X3 Assessment and Plan *Assessment and plan (1) Early satiety: Status: Acute Category: Medical Code(s): R68.81 - Early satiety (2) Bloating: Status: Acute Category: Medical Code(s): R14.0 - Abdominal distension (gaseous) (3) Epigastric pain: Status: Acute Category: Medical Code(s): R10.13 - Epigastric pain (4) Left upper quadrant pain: Status: Chronic Category: Medical Code(s): R10.12 - Left upper quadrant pain Plan A/P: 1. Epigastric/left upper quadrant abdominal pain, early satiety and bloating is the preprocedural diagnosis. The patient will be anesthetized/sedated using MAC sedation. The patient has been seen and examined. Cardiac and lung assessment prior to the examination is stable. Proceed with planned diagnostic EGD.
--- NOTE | 2025-01-22 06:53 | HMH.PROCNOTE ---
[facility] Procedure Note Date: 01/22/25 Time: 11:31 Procedure Note:: Upper Endoscopy Procedure Report: Esophagogastroduodenoscopy with cold biopsies Endoscopost: Aric Saab II, MD Referring Physician: Zaira White MD, [address] [facility], [address], [place] [address] Date of Procedure: January 22, 2025 Equipment: Olympus GIF-1100 standard upper endoscope Sedation: MAC sedation Indications: Mrs. Good is a 59-year-old female who is here for diagnostic EGD. She does have left upper quadrant abdominal pain that occurs postprandially. She feels as if food gets stuck in her stomach. She also reports epigastric/left upper quadrant abdominal discomfort, fullness and bloating. She reports no belching. This has occurred intermittently for many years but is worsening. The patient previously had a Eladio-en-Y gastric bypass in 2005. She did have a colonoscopy with me in June 2021. At that time, I found a single polyp (tubular adenoma) and left-sided diverticulosis. The patient did have an EGD with Dr. Donte Lopez in early 2021 and there was reported gastritis. She does have a long history of IBS. Her father had colon cancer in his 50s. The examination is deemed medically necessary for diagnostic EGD. Procedure: Prior to the procedure, a history and physical exam was performed, and patient's medications and allergies were reviewed. The risks, benefits and alternatives of the sedation and procedure were discussed with the patient. All questions were answered and informed consent was obtained. The patient was brought to the procedure room. Patient identification and proposed procedure were verified by the physician and the nurse. The patient was placed in a left lateral decubitus position and the scope was passed under direct vision. Throughout the procedure, the patient's blood pressure, pulse, and oxygen saturations were monitored continuously. The upper GI endoscopy was accomplished without difficulty. The patient tolerated the procedure well. Findings: The scope was passed directly into the upper esophagus and advanced to the afferent and efferent limbs of the Eladio-en-Y. The afferent was a blind loop. The jejunal mucosa and conniventes in the efferent limb was normal and cold biopsies were taken x 2 for the disaccharidase assay. The scope was withdrawn to the stomal anastomosis which was widely patent and there was no stomal stricture or ulceration. The scope was withdrawn into the gastric pouch which was slightly elongated and generous in size. There was some mild reactive gastropathy of the remaining gastric pouch/mucosa and cold biopsies were obtained. There was a small recurrent hiatal hernia. The scope was then withdrawn into the esophagus. There was no evidence of any reflux esophagitis or Underwood's. There were no rings or strictures. There were tertiary contractions and mild esophageal dysmotility. The remainder of the esophageal mucosa was normal. Impression: 1. Eladio-en-Y gastric bypass anatomy 2. Mild reactive gastropathy of gastric pouch and small hiatal hernia Plan: There was no anastomotic stricturing, ulcerations or gastrogastric fistulas which are common events with Ealdio-en-Y gastric bypass. I do feel that she should be seen by bariatric surgery. Certainly the symptoms can be related to internal hernias related to the surgery. I will follow-up the biopsies and disaccharidase assay. I will discuss the findings with the patient and family.
[2025-01-22 10:07] VITALS: BMI 33.6
[2025-01-22 10:13] VITALS: BP 138/82; PULSE 93; RESP 16; TEMP 36.2; O2SAT 100
[2025-01-22] MEDS: LACTATED RINGERS 1000ML 1,000 ML 50 ML IV (10:21)
--- NOTE | 2025-01-22 10:34 | P.PNANES_ITS ---
[facility] Disclaimer: The information contained in this section may have been updated after the patient was seen, as this information can be updated by other users. 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 History of lung cancer Hypertension Hyperlipidemia Fibromyalgia History of gastric cancer Dyslipidemia Arthritis Bipolar 1 disorder Endometriosis Migraine Seasonal allergies IBS (irritable bowel syndrome) Edema GERD without esophagitis Asthma CAD (coronary artery disease) Depression with anxiety CHF (congestive heart failure) COPD (chronic obstructive pulmonary disease) Surgical History History of lobectomy of lung Status post osteotomy H/O oophorectomy H/O: hysterectomy Gastric bypass status for obesity History of endoscopy History of cardiac cath History of bronchoscopy Social History Smoking Status: Current every day smoker tobacco type: cigarettes packs per day: 1 alcohol intake: never substance use type: unknown current occupational status: disabled and other Travel in the last 8 weeks?: None household members: spouse housing: house lives independently: Yes marital status: education level: high school [employer] Anesthesia Checklist Patient Identification Patient Identification: Arm Band and Verbal (Name & ) Structural Data Admitted From: Home Planned Operative Procedure/s: egd Consent for Planned Operative Procedure(s) Verified: Yes Verified Documents: Surgical Consent and History and Physical NPO Status Verified Time NPO: 00:00 Additional verifications Anesthesia Reactions: No Previous Colonoscopy: Yes Airway Assessment Mallampati Score:: Class II Dentition: Edentulous Neurological Assessment Level of Consciousness: Awake, Alert and Appropriate Hx Seizures: No Numbness or tingling in extremities: No Anesthesia Plan Anesthesia Risk discussed: Yes Anesthesia Plan: Verified ASA Class: III Anesthesia Type: MAC
[2025-01-22 11:29] VITALS: BP 81/52; PULSE 83; RESP 16; TEMP 36.1; O2SAT 94
[2025-01-22 11:39] VITALS: BP 112/62; PULSE 82; RESP 16; TEMP 36.1; O2SAT 94
[2025-01-22 11:49] VITALS: BP 103/52; PULSE 82; RESP 18; TEMP 36.1; O2SAT 94
[2025-01-22 11:59] VITALS: BP 103/82; PULSE 82; RESP 18; TEMP 36.1; O2SAT 94
[2025-01-27 14:11] LABS: Interpretation Notes (.); Lactase 1.11 (>/= 14.0); Maltase 262.64 (>/= 110.0); Palatinase 36.11 (>/= 8.5); Reference Notes (.); Sucrase 132.86 (>/= 25.0)
== END 2025-01-22 11:59 | disposition home or self-care (01) ==
PROVIDERS: PCP Internal Medicine; Visit Provider Internal Medicine Gastroenterology
PROC: 0DJ08ZZ Inspection of Upper Intestinal Tract, Via Natural or Artificial Opening Endoscopic (ICD-10-PCS; CPT 43239; principal; 2025-01-22 10:30)
DX: K29.50 Unspecified chronic gastritis without bleeding (principal); K31.89 Other diseases of stomach and duodenum; K44.9 Diaphragmatic hernia without obstruction or gangrene; K22.4 Dyskinesia of esophagus; J44.89 Other specified chronic obstructive pulmonary disease; I11.0 Hypertensive heart disease with heart failure; I50.9 Heart failure, unspecified; I25.10 Atherosclerotic heart disease of native coronary artery without angina pectoris; K58.9 Irritable bowel syndrome, unspecified; F17.210 Nicotine dependence, cigarettes, uncomplicated; Z88.2 Allergy status to sulfonamides; Z88.1 Allergy status to other antibiotic agents; Z86.0101 Personal history of adenomatous and serrated colon polyps; Z88.8 Allergy status to other drugs, medicaments and biological substances; Z98.84 Bariatric surgery status
CPT/HCPCS: 43239; 82657; 88305; J2003; J2704; J7120